=== PATIENT | male | born 1930 | race Hispanic/Latino ===

== ENCOUNTER → 2017-08-13 | Outpatient (CLI) | payer OTHER ==
[~2017-08-13] VITALS: Ht 167.6 cm; Wt 42.6 kg
[~2017-08-13] MED LIST: REGADENOSON 0.4 MG/5 ML PF SYG IVP ONE; REGADENOSON 0.4 MG/5 ML PF SYG IVP SCH
== END | disposition home or self-care (01) ==
LOC: SHCH 09:30
PROVIDERS: ATTEND Internal Medicine Cardiovascular Disease
DX: Z01.810 Encounter for preprocedural cardiovascular examination (principal); I10 Essential (primary) hypertension; I05.9 Rheumatic mitral valve disease, unspecified
CPT/HCPCS: 78452; 93017; 96374; A9500 ×2; J2785